=== PATIENT | male | born 1995 | race African-American/Black ===

== ENCOUNTER 2018-10-19 04:26 | Emergency (ER) | payer MEDICAID ==
[~2018-10-19] VITALS: Ht 172.7 cm; Wt 52.2 kg
[2018-10-19 04:45] VITALS: BP 114/66
== END 2018-10-19 04:47 | disposition home or self-care (01) ==
LOC: ER 04:26
DX: B35.4 Tinea corporis (principal); J45.909 Unspecified asthma, uncomplicated; Z88.0 Allergy status to penicillin

== ENCOUNTER 2021-01-23 19:06 | Emergency (ER) | payer SELFPAY ==
[~2021-01-23] VITALS: Ht 172.7 cm; Wt 59.0 kg
[2021-01-23 19:32] VITALS: BP 98/68
== END 2021-01-23 23:14 | disposition left against medical advice (07) ==
LOC: ER 19:07
DX: K59.00 Constipation, unspecified (principal); Z53.21 Procedure and treatment not carried out due to patient leaving prior to being seen by health care provider

== ENCOUNTER 2021-02-28 23:56 | Inpatient (IN) | payer MEDICAID ==
[~2021-02-28] VITALS: Ht 172.7 cm; Wt 62.3 kg
[2021-03-01] MEDS ORDERED: cefTRIAXone SOD 1,000 MG VL ONE (00:42)
[2021-03-01] MEDS ORDERED: CEFTRIAXONE SODIUM IV ONE (00:45)
[2021-03-01] MEDS ORDERED: VANCOMYCIN 1GM/250ML 250 ML IV ONE (00:45)
[2021-03-01] MEDS ORDERED: D5W 5% IV ONE (00:45)
[2021-03-01 00:59] LABS: Basophils # (auto) 0 10 ^3/uL (0-0.2); Basophils % (auto) 0.1 % (0.0-2.0); Eosinophils # (auto) 0 10 ^3/uL (0-0.8); Eosinophils % (auto) 0.2 % (0.0-7.0); Hematocrit 37.2 % (41.0-53.0); Hemoglobin 12.7 g/dL (13.5-17.5); Lymphocytes # (auto) 0.7 10 ^3/uL (0.4-5.4); Mean Corpuscular Hgb Conc. 34.2 g/dL (32.0-36.0); Mean Corpuscular Volume 81.9 fL (80.0-100.0); Monocytes # (auto) 1.2 10 ^3/uL (0-1.3); Monocytes % (auto) 7.1 % (0.0-12.0); Neutrophils % (auto) 88.6 % (37.0-80.0); Nucleated Red Blood Cells % 0.1 %; Red Blood Cells 4.55 10^6/uL (4.5-5.90); Red Cell Distribution Width 14.7 % (11.8-14.3); White Blood Cell 16.9 10^3/uL (4.4-10.8)
[2021-03-01] MEDS ORDERED: SODIUM CHLORIDE 0.9% 2,040 ML IV ONE (01:00)
[2021-03-01] MEDS ORDERED: ACETAMINOPHEN 325 MG TAB PO ONE (01:00)
[2021-03-01 01:15] LABS: Urine Amorphous Crystal FEW /hpf (None Seen); Urine Bacteria FEW /hpf (None Seen); Urine Blood 1+ /uL (Negative); Urine Hyaline Cast FEW /lpf (0 - 2); Urine Specific Gravity 1.013 (1.001-1.035); Urine WBC 514 /hpf (0 - 3); Urine WBC Clumps PRESENT /hpf (None Seen)
[2021-03-01 01:19] LABS: Albumin 2.9 g/dL (3.4-5.0); BUN/Creatinine Ratio 14.5; Calcium 8.4 mg/dL (8.5-10.1); Potassium 3.3 mmol/L (3.5-5.1)
[2021-03-01 01:20] LABS: Lactic Acid w/Reflex 3.6 mmol/L (0.4-2.0)
[2021-03-01 01:22] LABS: Bilirubin, Total 0.5 mg/dL (0.2-1.0); Total Protein 7.9 g/dL (6.4-8.2)
[2021-03-01] MEDS ORDERED: HYDROcodone-ACET 5/325MG TAB PO PRN (02:30)
[2021-03-01] MEDS ORDERED: POTASSIUM CHL 20 Meq TABLET PO ONE (02:30)
[2021-03-01] MEDS ORDERED: ALBUMIN 25% 50 ML IV ONE (02:30)
[2021-03-01] MEDS ORDERED: ONDANSETRON HCL 4 MG/2 ML VIAL IV PRN (02:30)
[2021-03-01] MEDS ORDERED: VANCOMYCIN PER PHARMACY 0 MG IV SCH (02:30)
[2021-03-01] MEDS: SODIUM CHLORIDE 0.9% 1,000 ML IV SCH ×2 (02:56→19:23)
[2021-03-01] MEDS ORDERED: NITROGLYCERIN 0.4 MG SL TAB SL PRN (03:30)
[2021-03-01] MEDS ORDERED: MORPHINE SULFATE INJECTION 2 MG/ML SYRG IV PRN (03:30)
[2021-03-01 05:04] LABS: Nucleated Red Blood Cells % 0.1 %
[2021-03-01 05:09] LABS: Basophils # (auto) 0 10 ^3/uL (0-0.2); Basophils % (auto) 0.2 % (0.0-2.0); Eosinophils # (auto) 0.1 10 ^3/uL (0-0.8); Eosinophils % (auto) 0.4 % (0.0-7.0); Hematocrit 32.4 % (41.0-53.0); Lymphocytes # (auto) 1.1 10 ^3/uL (0.4-5.4); Lymphocytes % (auto) 7.6 % (10.0-50.0); Mean Corpuscular Hemoglobin 27.6 pg (28.0-32.0); Mean Corpuscular Hgb Conc. 33.9 g/dL (32.0-36.0); Mean Corpuscular Volume 81.4 fL (80.0-100.0); Monocytes # (auto) 1.2 10 ^3/uL (0-1.3); Monocytes % (auto) 8.6 % (0.0-12.0); Neutrophils # (auto) 11.8 10 ^3/uL (1.6-8.6); Neutrophils % (auto) 83.2 % (37.0-80.0); Red Blood Cells 3.98 10^6/uL (4.5-5.90); Red Cell Distribution Width 14.4 % (11.8-14.3); White Blood Cell 14.1 10^3/uL (4.4-10.8)
[2021-03-01 05:16] LABS: Albumin 2.2 g/dL (3.4-5.0); BUN/Creatinine Ratio 16.1; Calcium 7.5 mg/dL (8.5-10.1)
[2021-03-01 05:19] LABS: Bilirubin, Total 0.3 mg/dL (0.2-1.0); Total Protein 6.5 g/dL (6.4-8.2)
[2021-03-01 05:31] LABS: Potassium 2.5 mmol/L (3.5-5.1)
[2021-03-01] MEDS: MEROPENEM 1GM IVPB 100 ML IV SCH ×3 (05:47→22:53)
[2021-03-01] MEDS: POTASSIUM CHL 20MEQ/50ML 50 ML IV SCH ×3 (06:28→11:38)
[2021-03-01] MEDS: ACETAMINOPHEN 325 MG TAB PO PRN ×2 (08:48→17:16)
[2021-03-01] MEDS: MULTIPLE VITAMIN TAB PO SCH (09:32)
[2021-03-01] MEDS: ZINC SULFATE 220mg CAP or TAB PO SCH (09:32)
[2021-03-01] MEDS: ENOXAPARIN SOD 40 MG/0.4 ML SYRINGE SC SCH (09:33)
[2021-03-01] MEDS: FAMOTIDINE (10MG/ML) 2ML VL IV SCH ×2 (09:33→22:48)
[2021-03-01] MEDS: ASCORBIC ACID 500 MG TAB PO SCH ×2 (09:33→22:53)
[2021-03-01] MEDS: VANCOMYCIN 1GM/250ML 250 ML IV SCH (13:00)
[2021-03-01 14:20] LABS: Albumin 2.2 g/dL (3.4-5.0); Calcium 7.9 mg/dL (8.5-10.1); Potassium 4.9 mmol/L (3.5-5.1)
[2021-03-01 14:23] LABS: BUN/Creatinine Ratio 16.7; Bilirubin, Total 0.3 mg/dL (0.2-1.0); Total Protein 6.8 g/dL (6.4-8.2)
[2021-03-01 23:30] VITALS: BP 127/74
[2021-03-02] VITALS: BP 124/72
[2021-03-02] MEDS: VANCOMYCIN 1GM/250ML 250 ML IV SCH ×2 (00:49→12:51)
[2021-03-02] MEDS: ACETAMINOPHEN 325 MG TAB PO PRN (03:54)
[2021-03-02 04:50] VITALS: BP 104/66
[2021-03-02] MEDS: MEROPENEM 1GM IVPB 100 ML IV SCH ×3 (06:22→22:16)
[2021-03-02 09:04] VITALS: BP 101/62
[2021-03-02] MEDS: ZINC SULFATE 220mg CAP or TAB PO SCH (09:52)
[2021-03-02] MEDS: ASCORBIC ACID 500 MG TAB PO SCH ×2 (09:52→22:16)
[2021-03-02] MEDS: MULTIPLE VITAMIN TAB PO SCH (09:52)
[2021-03-02] MEDS: FAMOTIDINE (10MG/ML) 2ML VL IV SCH ×2 (09:53→22:16)
[2021-03-02] MEDS: ENOXAPARIN SOD 40 MG/0.4 ML SYRINGE SC SCH (09:53)
[2021-03-02 12:02] LABS: Basophils # (auto) 0.1 10 ^3/uL (0-0.2); Basophils % (auto) 0.6 % (0.0-2.0); Eosinophils # (auto) 0.2 10 ^3/uL (0-0.8); Eosinophils % (auto) 2.2 % (0.0-7.0); Hematocrit 36.2 % (41.0-53.0); Hemoglobin 12.2 g/dL (13.5-17.5); Lymphocytes # (auto) 0.9 10 ^3/uL (0.4-5.4); Lymphocytes % (auto) 10.4 % (10.0-50.0); Mean Corpuscular Hemoglobin 27.5 pg (28.0-32.0); Mean Corpuscular Hgb Conc. 33.8 g/dL (32.0-36.0); Mean Corpuscular Volume 81.3 fL (80.0-100.0); Monocytes # (auto) 0.7 10 ^3/uL (0-1.3); Monocytes % (auto) 8.2 % (0.0-12.0); Neutrophils # (auto) 7.1 10 ^3/uL (1.6-8.6); Neutrophils % (auto) 78.6 % (37.0-80.0); Nucleated Red Blood Cells % 0.1 %; Red Blood Cells 4.45 10^6/uL (4.5-5.90); Red Cell Distribution Width 14.8 % (11.8-14.3)
[2021-03-02 12:21] LABS: Albumin 2.1 g/dL (3.4-5.0); Calcium 8.2 mg/dL (8.5-10.1); Potassium 3.6 mmol/L (3.5-5.1)
[2021-03-02 12:26] LABS: BUN/Creatinine Ratio 17.7; Bilirubin, Total 0.2 mg/dL (0.2-1.0); Total Protein 6.6 g/dL (6.4-8.2)
[2021-03-02 13:00] VITALS: BP 99/74
[2021-03-02 17:31] VITALS: BP 103/64
[2021-03-02 22:00] VITALS: BP 120/49
[2021-03-03] MEDS: VANCOMYCIN 1GM/250ML 250 ML IV SCH ×2 (01:30→12:52)
[2021-03-03 05:00] VITALS: BP 108/57
[2021-03-03] MEDS: MEROPENEM 1GM IVPB 100 ML IV SCH ×3 (05:58→22:09)
[2021-03-03 09:14] VITALS: BP 111/75
[2021-03-03 10:35] LABS: Basophils # (auto) 0 10 ^3/uL (0-0.2); Basophils % (auto) 0.4 % (0.0-2.0); Eosinophils # (auto) 0.3 10 ^3/uL (0-0.8); Hematocrit 37.8 % (41.0-53.0); Hemoglobin 12.6 g/dL (13.5-17.5); Lymphocytes % (auto) 11.5 % (10.0-50.0); Mean Corpuscular Hemoglobin 27.2 pg (28.0-32.0); Mean Corpuscular Hgb Conc. 33.3 g/dL (32.0-36.0); Mean Corpuscular Volume 81.8 fL (80.0-100.0); Monocytes # (auto) 0.7 10 ^3/uL (0-1.3); Monocytes % (auto) 8.1 % (0.0-12.0); Neutrophils # (auto) 6.3 10 ^3/uL (1.6-8.6); Red Blood Cells 4.62 10^6/uL (4.5-5.90); Red Cell Distribution Width 14.6 % (11.8-14.3); White Blood Cell 8.3 10^3/uL (4.4-10.8)
[2021-03-03 11:06] LABS: Calcium 8.9 mg/dL (8.5-10.1)
[2021-03-03 11:09] LABS: BUN/Creatinine Ratio 17.4
[2021-03-03] MEDS: MULTIPLE VITAMIN TAB PO SCH (11:25)
[2021-03-03] MEDS: FAMOTIDINE (10MG/ML) 2ML VL IV SCH ×2 (11:25→22:10)
[2021-03-03] MEDS: ASCORBIC ACID 500 MG TAB PO SCH ×2 (11:26→22:10)
[2021-03-03] MEDS: ENOXAPARIN SOD 40 MG/0.4 ML SYRINGE SC SCH (11:26)
[2021-03-03] MEDS: ZINC SULFATE 220mg CAP or TAB PO SCH (11:37)
[2021-03-03 13:00] VITALS: BP_SYST 103; BP_SYST 110; BP_DIAS 58; BP_DIAS 64
[2021-03-03 16:21] VITALS: BP 110/64
[2021-03-03] MEDS: DOCUSATE SOD 100 MG CAP PO PRN (18:10)
[2021-03-03 22:00] VITALS: BP 111/65
[2021-03-04] MEDS: VANCOMYCIN 1GM/250ML 250 ML IV SCH ×2 (00:50→13:00)
[2021-03-04 05:00] VITALS: BP 104/61
[2021-03-04] MEDS: MEROPENEM 1GM IVPB 100 ML IV SCH (06:10)
[2021-03-04 06:51] LABS: Basophils # (auto) 0.1 10 ^3/uL (0-0.2); Basophils % (auto) 0.6 % (0.0-2.0); Eosinophils # (auto) 0.5 10 ^3/uL (0-0.8); Eosinophils % (auto) 6.3 % (0.0-7.0); Hematocrit 40.5 % (41.0-53.0); Hemoglobin 13.5 g/dL (13.5-17.5); Lymphocytes # (auto) 1.4 10 ^3/uL (0.4-5.4); Lymphocytes % (auto) 17.8 % (10.0-50.0); Mean Corpuscular Hemoglobin 27.4 pg (28.0-32.0); Mean Corpuscular Hgb Conc. 33.2 g/dL (32.0-36.0); Mean Corpuscular Volume 82.3 fL (80.0-100.0); Monocytes # (auto) 0.7 10 ^3/uL (0-1.3); Monocytes % (auto) 8.1 % (0.0-12.0); Neutrophils # (auto) 5.4 10 ^3/uL (1.6-8.6); Neutrophils % (auto) 67.2 % (37.0-80.0); Nucleated Red Blood Cells % 0.1 %; Red Blood Cells 4.92 10^6/uL (4.5-5.90); Red Cell Distribution Width 14.6 % (11.8-14.3); White Blood Cell 8.1 10^3/uL (4.4-10.8)
[2021-03-04 07:05] LABS: Calcium 9.1 mg/dL (8.5-10.1); Potassium 4.5 mmol/L (3.5-5.1)
[2021-03-04 07:10] LABS: BUN/Creatinine Ratio 15.6
[2021-03-04 08:53] VITALS: BP 97/62
[2021-03-04] MEDS: ZINC SULFATE 220mg CAP or TAB PO SCH (10:09)
[2021-03-04] MEDS: FAMOTIDINE (10MG/ML) 2ML VL IV SCH (10:09)
[2021-03-04] MEDS: ENOXAPARIN SOD 40 MG/0.4 ML SYRINGE SC SCH (10:10)
[2021-03-04] MEDS: DOCUSATE SOD 100 MG CAP PO PRN (10:10)
[2021-03-04] MEDS: ASCORBIC ACID 500 MG TAB PO SCH (10:10)
[2021-03-04] MEDS: MULTIPLE VITAMIN TAB PO SCH (10:10)
[2021-03-04 11:38] VITALS: BP 97/62
[2021-03-04 13:00] VITALS: BP 108/62
== END 2021-03-04 13:30 | disposition home or self-care (01) | DRG 720 ==
LOC: EDBD 23:56 → ER 23:58 → OVERFLOW 03-01 03:20 → WEST WING 03-01 23:14
PROVIDERS: ADMIT Nurse Practitioner Family; ATTEND Internal Medicine
DX: A41.9 Sepsis, unspecified organism (principal); L89.153 Pressure ulcer of sacral region, stage 3; E44.1 Mild protein-calorie malnutrition; G82.20 Paraplegia, unspecified; E87.1 Hypo-osmolality and hyponatremia; Z20.822 Contact with and (suspected) exposure to COVID-19; N39.0 Urinary tract infection, site not specified; J45.909 Unspecified asthma, uncomplicated; E88.09 Other disorders of plasma-protein metabolism, not elsewhere classified; B96.5 Pseudomonas (aeruginosa) (mallei) (pseudomallei) as the cause of diseases classified elsewhere; E87.6 Hypokalemia; R65.20 Severe sepsis without septic shock; Z68.20 Body mass index [BMI] 20.0-20.9, adult; Z87.440 Personal history of urinary (tract) infections; Z88.0 Allergy status to penicillin
CPT/HCPCS: 36415; 51702; 74176; 80048; 80053; 80202; 81001; 83036; 83605; 85025; 87040; 87077; 87086; 87088; 87186; 87205; 87426; 96361; 96365; 96366; 96367; 96368; 96372; 96375; G0378; J0696; J2185; J3490; J7060

== ENCOUNTER 2021-03-13 09:21 | Inpatient (IN) | payer MEDICAID, OTHER ==
[~2021-03-13] VITALS: Ht 172.7 cm; Wt 67.5 kg
[2021-03-13] MEDS ORDERED: SODIUM CHLORIDE 0.9% 1,000 ML IV ONE (10:15)
[2021-03-13] MEDS ORDERED: CLINDAMYCIN 600MG IV 50 ML IV ONE (17:15)
[2021-03-13] MEDS ORDERED: cefTRIAXone 1GM/50ML D5W 50 ML IV ONE (17:15)
[2021-03-13 20:04] LABS: Basophils # (auto) 0.1 10 ^3/uL (0-0.2); Basophils % (auto) 0.6 % (0.0-2.0); Eosinophils # (auto) 0.4 10 ^3/uL (0-0.8); Monocytes # (auto) 0.6 10 ^3/uL (0-1.3); Nucleated Red Blood Cells % 0.1 %
[2021-03-13 20:05] LABS: Eosinophils % (auto) 3.9 % (0.0-7.0); Hematocrit 41.1 % (41.0-53.0); Hemoglobin 13.8 g/dL (13.5-17.5); Lymphocytes % (auto) 21.6 % (10.0-50.0); Mean Corpuscular Hemoglobin 27.6 pg (28.0-32.0); Mean Corpuscular Hgb Conc. 33.5 g/dL (32.0-36.0); Mean Corpuscular Volume 82.4 fL (80.0-100.0); Monocytes % (auto) 6.9 % (0.0-12.0); Neutrophils # (auto) 6.2 10 ^3/uL (1.6-8.6); Red Blood Cells 4.99 10^6/uL (4.5-5.90); Red Cell Distribution Width 15.6 % (11.8-14.3); White Blood Cell 9.3 10^3/uL (4.4-10.8)
[2021-03-13 20:24] LABS: Albumin 3.4 g/dL (3.4-5.0); Anion Gap 5 (5-15); Blood Urea Nitrogen 12 mg/dL (7-18); Calcium 9.6 mg/dL (8.5-10.1); Carbon Dioxide 30 mmol/L (21-32); Chloride 105 mmol/L (98-107); Glucose 101 mg/dL (74-106); Potassium 3.7 mmol/L (3.5-5.1); Sodium 140 mmol/L (136-145)
[2021-03-13 20:29] LABS: Alanine Aminotransferase 29 U/L (16-61); Alkaline Phosphatase 84 U/L (45-117); Aspartate Aminotransferase 12 U/L (15-37); BUN/Creatinine Ratio 18.8; Bilirubin, Total 0.2 mg/dL (0.2-1.0); GFR African American 193 mL/min; GFR Non-African American 159 mL/min; Total Protein 8.2 g/dL (6.4-8.2)
[2021-03-13] MEDS ORDERED: IOHEXOL 350 MG/ML 100ML IJ ONE (21:36)
[2021-03-14] MEDS ORDERED: MORPHINE SULFATE INJECTION 2 MG/ML SYRG IV PRN ×2 (09:00)
[2021-03-14] MEDS ORDERED: ONDANSETRON HCL 4 MG/2 ML VIAL IV PRN (09:00)
[2021-03-14] MEDS ORDERED: DOCUSATE SOD 100 MG CAP PO PRN (09:00)
[2021-03-14] MEDS ORDERED: HYDROcodone-ACET 5/325MG TAB PO PRN (09:00)
[2021-03-14] MEDS ORDERED: ACETAMINOPHEN 500 MG TAB PO PRN (09:00)
[2021-03-14] MEDS ORDERED: NITROGLYCERIN 0.4 MG SL TAB SL PRN (09:00)
[2021-03-14] MEDS: levoFLOXacin 500MG 100 ML IV SCH (12:18)
[2021-03-14] MEDS: ENOXAPARIN SOD 40 MG/0.4 ML SYRINGE SC SCH (12:20)
[2021-03-14] MEDS: LINEZOLID 600MG/300ML 300 ML IV SCH ×2 (15:05→22:02)
[2021-03-14 18:35] LABS: Urine Bacteria NONE SEEN /hpf (None Seen); Urine Blood TRACE /uL (Negative); Urine Specific Gravity 1.008 (1.001-1.035); Urine WBC 1 /hpf (0 - 3)
[2021-03-14 22:00] VITALS: BP 104/48
[2021-03-15 05:00] VITALS: BP 98/58
[2021-03-15 08:00] VITALS: BP 113/55
[2021-03-15] MEDS: levoFLOXacin 500MG 100 ML IV SCH (10:00)
[2021-03-15] MEDS: ENOXAPARIN SOD 40 MG/0.4 ML SYRINGE SC SCH (10:00)
[2021-03-15] MEDS: LINEZOLID 600MG/300ML 300 ML IV SCH ×2 (11:00→22:49)
[2021-03-15 12:00] VITALS: BP 106/59
[2021-03-15 22:00] VITALS: BP 108/56
[2021-03-16 02:27] LABS: Amphetamine Screen, Urine NEGATIVE (NEGATIVE); Barbiturate Scree,Urine NEGATIVE (NEGATIVE); Benzodiazephine Screen, Urine NEGATIVE (NEGATIVE); Cannabinoid Screen, Urine POSITIVE (NEGATIVE); Cocaine Screen, Urine NEGATIVE (NEGATIVE); Phencyclidine Screen, Urine NEGATIVE (NEGATIVE)
[2021-03-16 02:35] LABS: Opiate Scree,Urine NEGATIVE (NEGATIVE)
[2021-03-16 05:00] VITALS: BP 104/57
[2021-03-16 09:00] VITALS: BP 102/56
[2021-03-16] MEDS: levoFLOXacin 500MG 100 ML IV SCH (09:51)
[2021-03-16] MEDS: ENOXAPARIN SOD 40 MG/0.4 ML SYRINGE SC SCH (09:52)
[2021-03-16] MEDS: LINEZOLID 600MG/300ML 300 ML IV SCH ×2 (11:00→21:27)
[2021-03-16 12:30] VITALS: BP 108/55
[2021-03-16] MEDS ORDERED: GADOTERATE MEG 10 MMOL/20ml INJ (0.5MMOL/ml) IV ONE (12:56)
[2021-03-16 17:00] VITALS: BP 112/59
[2021-03-16 22:00] VITALS: BP 110/62
[2021-03-17 05:00] VITALS: BP 99/59
[2021-03-17 08:15] VITALS: BP 94/58
[2021-03-17 09:00] VITALS: BP 94/58
[2021-03-17] MEDS: levoFLOXacin 500MG 100 ML IV SCH (10:26)
[2021-03-17] MEDS: LINEZOLID 600MG/300ML 300 ML IV SCH (10:27)
[2021-03-17] MEDS: LACTULOSE 20Gm/30ML SOLN PO SCH ×2 (10:27→22:33)
[2021-03-17] MEDS: ENOXAPARIN SOD 40 MG/0.4 ML SYRINGE SC SCH (10:28)
[2021-03-17 13:00] VITALS: BP 101/43
[2021-03-17 17:18] VITALS: BP 95/55
[2021-03-17 23:08] VITALS: BP 107/62
[2021-03-18 05:05] VITALS: BP 92/49
[2021-03-18 08:00] VITALS: BP 91/58
[2021-03-18 08:15] VITALS: BP 91/58
[2021-03-18] MEDS ORDERED: LACT10SO3 PO (09:20)
[2021-03-18] MEDS: levoFLOXacin 500MG 100 ML IV SCH (10:08)
[2021-03-18] MEDS: LACTULOSE 20Gm/30ML SOLN PO SCH (10:09)
[2021-03-18] MEDS: ENOXAPARIN SOD 40 MG/0.4 ML SYRINGE SC SCH (10:09)
[2021-03-18 10:59] VITALS: BP 91/58
[2021-03-18 12:00] VITALS: BP 97/52
== END 2021-03-18 14:35 | disposition home or self-care (01) | DRG 593 ==
LOC: ER 09:21 → OVERFLOW 03-14 08:57 → WEST WING 03-14 16:06
PROVIDERS: ADMIT Nurse Practitioner Acute Care; ATTEND Internal Medicine
DX: L89.153 Pressure ulcer of sacral region, stage 3 (principal); G82.20 Paraplegia, unspecified; L03.317 Cellulitis of buttock; J45.909 Unspecified asthma, uncomplicated; Z20.822 Contact with and (suspected) exposure to COVID-19; Z88.0 Allergy status to penicillin; F12.10 Cannabis abuse, uncomplicated; N31.9 Neuromuscular dysfunction of bladder, unspecified; Z79.2 Long term (current) use of antibiotics; K56.41 Fecal impaction; F19.10 Other psychoactive substance abuse, uncomplicated
CPT/HCPCS: 36415; 71045; 72193; 72195; 76705; 80053; 80307; 81001; 84484; 85025; 87077; 87081; 87186; 87205; 87426; 93971; 96365; 96367; G0378; J0696; J1956; J3490